=== PATIENT | female | born 1970 | race Caucasian/White ===

== ENCOUNTER → 2021-11-03 | Outpatient (CLI) | payer OTHER ==
[~2021-11-03] MED LIST: CRUTCH2 XX; FAMO10 PO; HERCEPTIN; HYDACE5 PO; LEVFLO500 PO; LORA1 PO; PHENA200 PO; Percocet 5-3251 EACH PO; Zithromax250 MG PO; Zofran4 MG PO; [UNRECOGNIZED DRUG - OTHER]; [UNRECOGNIZED DRUG - OTHER]; [UNRECOGNIZED DRUG - OTHER]
[2021-11-03 10:36] LABS: BASOPHILS ABSOLUTE AUTO 0.05 K/mm3 (0.00-0.23); BASOPHILS PERCENT AUTO 1 % (0-2); EOSINOPHILS ABSOLUTE AUTO 0.07 K/mm3 (0.00-0.68); EOSINOPHILS PERCENT AUTO 1 % (0-6); Hematocrit 45.3 % (33.0-51.0); Hemoglobin 16.2 g/dL (11.5-16.0); IMMATURE GRAN ABSOLUTE AUTO 0.04 K/mm3 (0.00-0.10); IMMATURE GRAN PERCENT AUTO 0 % (0-1); LYMPHOCYTES ABSOLUTE AUTO 2.74 K/mm3 (0.84-5.20); LYMPHOCYTES PERCENT AUTO 27 % (21-46); MONOCYTES ABSOLUTE AUTO 0.75 K/mm3 (0.16-1.47); MONOCYTES PERCENT AUTO 8 % (4-13); Mean Corpuscular HGB Conc 35.8 g/dL (31.5-36.5); Mean Corpuscular Volume 106 fL (80-100); Mean Platelet Volume 10.1 fL (9.1-12.4); NEUTROPHILS ABSOLUTE AUTO 6.38 K/mm3 (1.96-9.15); NEUTROPHILS PERCENT AUTO 64 % (41-73); Platelet Count 211 K/mm3 (150-400); RDW Coefficient Variation 12.4 % (11.7-14.2); RDW Standard Deviation 48.4 fL (35.1-46.3); Red Blood Cell Count 4.26 M/mm3 (3.80-5.20); White Blood Cell Count 10.03 K/mm3 (4.00-11.30)
[2021-11-03 10:49] LABS: Anion Gap 6 mmol/L (6-16); Blood Urea Nitrogen 5 mg/dL (8-24); CO2, Blood 33 mmol/L (21-32); Calcium, Blood 9.3 mg/dL (8.5-10.1); Chloride, Blood 96 mmol/L (98-108); Creatinine, Blood 0.71 mg/dL (0.40-1.00); Glomerular Filtration Rate >60 (60-); Glucose, Blood 107 mg/dL (70-99); Potassium, Blood 4.1 mmol/L (3.5-5.5); Sodium, Blood 135 mmol/L (136-145)
== END | disposition home or self-care (01) ==
LOC: LAB SHORT 10:29 → LAB 10:29
PROVIDERS: Chiropractor
DX: R07.9 Chest pain, unspecified (principal)
CPT/HCPCS: 80048; 84484; 85025; 85379

== ENCOUNTER 2021-12-10 06:05 | Day surgery (SDC) | payer OTHER ==
[~2021-12-10] VITALS: Ht 165.1 cm; Wt 58.2 kg
[~2021-12-10 06:05] MED LIST changes: +BENTYL PO; +CYCL10 PO; +DECADRON4 M1 PO; +LOSA25 PO; +METO25ER PO; +NEURONTIN300 MG PO; +PANT40 PO
--- NOTE | 2021-12-10 06:52 | NUR ---
History, Chart, Medications and Allergies reviewed before start of procedure. Lungs clear T/O to Auscultation. Patient confirms NPO status and agrees with scheduled surgery. Pre-Op teaching done. Pt verbalizes understanding. Patient reports completing Chlorhexadine shower X2 prior to admission to hospital. Patient States Post-Procedure ride home has been arranged.
--- NOTE | 2021-12-10 09:48 | NUR ---
Patient up to Ambulate independently. Gait steady. Discharge instructions reviewed with patient. Patient verbalizes understanding. Copy given to patient to take home. Discharged via wheelchair to private car for ride home.
== END 2021-12-10 23:15 | disposition home or self-care (01) ==
LOC: ORSCMMR 06:05 → ORD 09:45 → ORSCMMR 09:45
PROVIDERS: Surgery
PROC: 05HM33Z Insertion of Infusion Device into Right Internal Jugular Vein, Percutaneous Approach (ICD-10-PCS; principal; 2021-12-10 07:30)
DX: C34.11 Malignant neoplasm of upper lobe, right bronchus or lung (principal); I10 Essential (primary) hypertension; K21.9 Gastro-esophageal reflux disease without esophagitis; R56.9 Unspecified convulsions; Z79.899 Other long term (current) drug therapy
CPT/HCPCS: 77001; A9270; C1788; J0690; J1100; J1642; J2250; J2704; J3010; J7120

== ENCOUNTER → 2022-01-08 | Outpatient (CLI) | payer OTHER ==
[~2022-01-08] MED LIST changes: +Ativan0.5 MG PO; +POTA20PAC PO
== END | disposition home or self-care (01) ==
LOC: LAB SHORT 12:14 → LAB 12:14
DX: N39.0 Urinary tract infection, site not specified (principal)
CPT/HCPCS: 87077; 87086; 87186

== ENCOUNTER 2022-01-11 10:23 | Emergency (ER) | payer OTHER ==
[~2022-01-11] VITALS: Ht 165.1 cm; Wt 51.7 kg
[~2022-01-11 10:23] MED LIST changes: -Ativan0.5 MG PO; -POTA20PAC PO
[2022-01-11 11:45] LABS: Hematocrit 33.7 % (33.0-51.0); Hemoglobin 12.3 g/dL (11.5-16.0); Mean Corpuscular HGB 36.1 pg (26.0-34.0); Mean Corpuscular HGB Conc 36.5 g/dL (31.5-36.5); Mean Corpuscular Volume 99 fL (80-100); RDW Coefficient Variation 12.2 % (11.7-14.2); Red Blood Cell Count 3.41 M/mm3 (3.80-5.20); White Blood Cell Count 5.12 K/mm3 (4.00-11.30)
[2022-01-11 11:57] LABS: Alanine Aminotransfer (ALT/SGP 41 U/L (12-78); Albumin, Blood 3.3 g/dL (3.4-5.0); Albumin/Globulin Ratio 0.9 (0.8-1.8); Alk Phos 69 U/L (50-136); Anion Gap 16 mmol/L (6-16); Aspartate Aminotrans (AST/SGOT 34 U/L (12-37); Bilirubin, Total 0.6 mg/dL (0.1-1.0); Blood Urea Nitrogen 8 mg/dL (8-24); Bun/Creatinine Ratio 16.3 (12.0-20.0); CO2, Blood 28 mmol/L (21-32); Calcium, Blood 8.9 mg/dL (8.5-10.1); Chloride, Blood 86 mmol/L (98-108); Creatinine, Blood 0.49 mg/dL (0.40-1.00); Globulin, Blood 3.8 g/dL (2.2-4.0); Glomerular Filtration Rate >60 (60-); Glucose, Blood 78 mg/dL (70-99); Magnesium, Blood 1.7 mg/dL (1.6-2.4); Potassium, Blood 2.9 mmol/L (3.5-5.5); Sodium, Blood 130 mmol/L (136-145); Total Protein, Blood 7.1 g/dL (6.4-8.2)
[2022-01-11 12:55] LABS: BAND PERCENT MAN 5 % (0-8); BASOPHILS ABSOLUTE MAN 0.05 K/mm3 (0.00-0.23); BASOPHILS PERCENT MAN 1 % (0-2); EOSINOPHILS ABSOLUTE MAN 0.05 K/mm3 (0.00-0.68); EOSINOPHILS PERCENT MAN 1 % (0-6); LYMPHOCYTES ABSOLUTE MAN 0.46 K/mm3 (0.84-5.20); LYMPHOCYTES PERCENT MAN 9 % (21-46); MONOCYTES ABSOLUTE MAN 0.05 K/mm3 (0.16-1.47); MONOCYTES PERCENT MAN 1 % (4-13); SEG NEUTROPHILS PERCENT MAN 83 % (41-73); TOTAL CELLS COUNTED 100
[2022-01-11 12:58] LABS: Mean Platelet Volume 12.1 fL (9.1-12.4); Platelet Count 50 K/mm3 (150-400)
[2022-01-11] MEDS ORDERED: Ativan0.5 MG PO (17:52)
[2022-01-11] MEDS ORDERED: POTA20PAC PO (18:21)
== END 2022-01-11 18:28 | disposition home or self-care (01) ==
LOC: ER 10:23
PROVIDERS: Physician Assistant
DX: R11.2 Nausea with vomiting, unspecified (principal); T45.1X5A Adverse effect of antineoplastic and immunosuppressive drugs, initial encounter; E87.6 Hypokalemia; N39.0 Urinary tract infection, site not specified; C79.31 Secondary malignant neoplasm of brain; F17.200 Nicotine dependence, unspecified, uncomplicated; Z79.899 Other long term (current) drug therapy; Z88.8 Allergy status to other drugs, medicaments and biological substances; Y92.9 Unspecified place or not applicable; C34.90 Malignant neoplasm of unspecified part of unspecified bronchus or lung; Z88.5 Allergy status to narcotic agent
CPT/HCPCS: 80053; 83690; 83735; 85025; A9270; J2060; J7042

== ENCOUNTER 2022-01-31 08:45 | Day surgery (SDC) | payer OTHER ==
[~2022-01-31 08:45] MED LIST changes: +Ativan0.5 MG PO; +POTA20PAC PO
--- NOTE | 2022-01-31 09:05 | NUR ---
PT REPORTS N/V SINCE LAST TREATMENT A WEEK AGO. REPORTS THAT SHE SPOKE WITH ONC CALL STAFF FOR ONCOLOGY OFFICE WHO INSTRUCTED HER TO GO TO THE ER TODAY.
== END 2022-01-31 08:58 | disposition home or self-care (01) ==
LOC: ATC 08:45
DX: C34.11 Malignant neoplasm of upper lobe, right bronchus or lung (principal); C79.31 Secondary malignant neoplasm of brain; I50.22 Chronic systolic (congestive) heart failure; F17.200 Nicotine dependence, unspecified, uncomplicated; Z85.3 Personal history of malignant neoplasm of breast; Z85.048 Personal history of other malignant neoplasm of rectum, rectosigmoid junction, and anus; Z88.5 Allergy status to narcotic agent; Z88.8 Allergy status to other drugs, medicaments and biological substances
CPT/HCPCS: Q5110

== ENCOUNTER 2022-01-31 09:10 | Emergency (ER) | payer OTHER ==
[~2022-01-31] VITALS: Ht 165.1 cm; Wt 47.2 kg
[2022-01-31 11:04] LABS: Albumin, Blood 3.7 g/dL (3.4-5.0); Albumin/Globulin Ratio 0.8 (0.8-1.8); Bilirubin, Total 1.5 mg/dL (0.1-1.0); Calcium, Blood 9.6 mg/dL (8.5-10.1); Creatinine, Blood 0.51 mg/dL (0.40-1.00); Globulin, Blood 4.4 g/dL (2.2-4.0); Magnesium, Blood 1.8 mg/dL (1.6-2.4); Potassium, Blood 3.1 mmol/L (3.5-5.5); Total Protein, Blood 8.1 g/dL (6.4-8.2)
[2022-01-31 11:57] LABS: Hematocrit 34.9 % (33.0-51.0); Mean Corpuscular HGB 35.2 pg (26.0-34.0); Mean Corpuscular Volume 95 fL (80-100); RDW Coefficient Variation 12.3 % (11.7-14.2); RDW Standard Deviation 42.8 fL (35.1-46.3); Red Blood Cell Count 3.69 M/mm3 (3.80-5.20); White Blood Cell Count 3.78 K/mm3 (4.00-11.30)
[2022-01-31 11:58] LABS: Mean Platelet Volume 11.3 fL (9.1-12.4)
[2022-01-31 12:01] LABS: Mean Corpuscular HGB Conc 37.2 g/dL (31.5-36.5)
[2022-01-31 12:08] LABS: BASOPHILS PERCENT MAN 0 % (0-2); EOSINOPHILS PERCENT MAN 0 % (0-6); LYMPHOCYTES ABSOLUTE MAN 0.52 K/mm3 (0.84-5.20); LYMPHOCYTES PERCENT MAN 14 % (21-46); MONOCYTES PERCENT MAN 0 % (4-13); NEUTROPHILS ABSOLUTE MAN 3.25 K/mm3 (1.96-9.15); SEG NEUTROPHILS PERCENT MAN 86 % (41-73); TOTAL CELLS COUNTED 100
[2022-01-31 12:12] LABS: Platelet Count 86 K/mm3 (150-400)
== END 2022-01-31 15:11 | disposition home or self-care (01) ==
LOC: ER 09:10
PROVIDERS: Physician Assistant
DX: R11.2 Nausea with vomiting, unspecified (principal); T45.1X5A Adverse effect of antineoplastic and immunosuppressive drugs, initial encounter; E87.1 Hypo-osmolality and hyponatremia; E87.6 Hypokalemia; F17.200 Nicotine dependence, unspecified, uncomplicated; C34.90 Malignant neoplasm of unspecified part of unspecified bronchus or lung; C79.31 Secondary malignant neoplasm of brain; C50.919 Malignant neoplasm of unspecified site of unspecified female breast; Z79.899 Other long term (current) drug therapy; Z88.5 Allergy status to narcotic agent; Z88.8 Allergy status to other drugs, medicaments and biological substances; Y92.9 Unspecified place or not applicable
CPT/HCPCS: 36415; 80053; 83735; 85025; A9270; J2550; J7030

== ENCOUNTER → 2022-02-02 | Outpatient (CLI) | payer OTHER ==
[2022-02-02 10:33] LABS: Hematocrit 24.9 % (33.0-51.0); Hemoglobin 9.1 g/dL (11.5-16.0); Mean Corpuscular HGB Conc 36.5 g/dL (31.5-36.5); Mean Corpuscular Volume 98 fL (80-100); Mean Platelet Volume 11.6 fL (9.1-12.4); RDW Coefficient Variation 12.3 % (11.7-14.2); RDW Standard Deviation 43.8 fL (35.1-46.3); Red Blood Cell Count 2.53 M/mm3 (3.80-5.20)
[2022-02-02 10:42] LABS: Albumin, Blood 2.8 g/dL (3.4-5.0); Albumin/Globulin Ratio 0.8 (0.8-1.8); Bilirubin, Total 1.2 mg/dL (0.1-1.0); Bun/Creatinine Ratio 24.7 (12.0-20.0); Calcium, Blood 8.6 mg/dL (8.5-10.1); Creatinine, Blood 0.41 mg/dL (0.40-1.00); Globulin, Blood 3.6 g/dL (2.2-4.0); Potassium, Blood 2.9 mmol/L (3.5-5.5); Total Protein, Blood 6.4 g/dL (6.4-8.2)
[2022-02-02 11:49] LABS: Platelet Count 26 K/mm3 (150-400); White Blood Cell Count 0.56 K/mm3 (4.00-11.30)
[2022-02-02 11:54] LABS: BASOPHILS PERCENT MAN 0 % (0-2); EOSINOPHILS ABSOLUTE MAN 0.02 K/mm3 (0.00-0.68); EOSINOPHILS PERCENT MAN 4 % (0-6); LYMPHOCYTES ABSOLUTE MAN 0.41 K/mm3 (0.84-5.20); LYMPHOCYTES PERCENT MAN 74 % (21-46); MONOCYTES PERCENT MAN 0 % (4-13); NEUTROPHILS ABSOLUTE MAN 0.12 K/mm3 (1.96-9.15); SEG NEUTROPHILS PERCENT MAN 22 % (41-73); TOTAL CELLS COUNTED 50
== END | disposition home or self-care (01) ==
LOC: LAB 09:49 → LAB SHORT 09:49
PROVIDERS: Internal Medicine Hematology & Oncology
DX: C34.90 Malignant neoplasm of unspecified part of unspecified bronchus or lung (principal)
CPT/HCPCS: 36415; 80053; 82378; 85025

== ENCOUNTER 2022-02-05 09:41 | Day surgery (SDC) | payer OTHER ==
[2022-02-05] MEDS ORDERED: KLOR-CON 1010 ME1 PO (10:33)
[2022-02-05] MEDS ORDERED: PROM25 PO (10:34)
[2022-02-05] MEDS ORDERED: ALBU90OI INH (10:34)
[2022-02-05] MEDS ORDERED: PROM12.5S PR (10:34)
[2022-02-05] MEDS ORDERED: Cyclobenzaprine5 MG PO (10:35)
[2022-02-05] MEDS ORDERED: BUPR150ER PO (10:36)
[2022-02-05] MEDS ORDERED: MEMA10 PO (10:36)
[2022-02-05] MEDS ORDERED: LOSA25 PO (10:36)
[2022-02-05] MEDS ORDERED: LEVFLO500 PO (10:37)
--- NOTE | 2022-02-05 10:39 | NUR ---
ENCOURAGED PT TO BE VERY CAREFULL WHEN GETTNG UP. ENCOURAGED HER TO STOP FOR A FEW SECONDS PRIOR TO GETTING UP D/T HER LOW BP.
== END 2022-02-05 10:05 | disposition home or self-care (01) ==
LOC: ATC 09:41
DX: C34.11 Malignant neoplasm of upper lobe, right bronchus or lung (principal); D70.1 Agranulocytosis secondary to cancer chemotherapy; I50.22 Chronic systolic (congestive) heart failure; I42.9 Cardiomyopathy, unspecified; F17.200 Nicotine dependence, unspecified, uncomplicated; Z88.5 Allergy status to narcotic agent; Z88.8 Allergy status to other drugs, medicaments and biological substances
CPT/HCPCS: 96372; Q5110

== ENCOUNTER → 2022-02-06 | Outpatient (CLI) | payer OTHER ==
[~2022-02-06] MED LIST changes: +ALBU90OI INH; +BUPR150ER PO; +Cyclobenzaprine5 MG PO; +KLOR-CON 1010 ME1 PO; +MEMA10 PO; +PROM12.5S PR; +PROM25 PO
[2022-02-06 13:13] LABS: Albumin, Blood 2.9 g/dL (3.4-5.0); Bilirubin, Total 1.1 mg/dL (0.1-1.0); Bun/Creatinine Ratio 22.3 (12.0-20.0); Calcium, Blood 8.4 mg/dL (8.5-10.1); Creatinine, Blood 0.31 mg/dL (0.40-1.00); Potassium, Blood 2.3 mmol/L (3.5-5.5); Total Protein, Blood 5.9 g/dL (6.4-8.2)
[2022-02-06 14:01] LABS: Hematocrit 23.8 % (33.0-51.0); Mean Corpuscular Volume 93 fL (80-100); RDW Coefficient Variation 12.3 % (11.7-14.2); RDW Standard Deviation 41.1 fL (35.1-46.3); Red Blood Cell Count 2.57 M/mm3 (3.80-5.20); White Blood Cell Count 1.47 K/mm3 (4.00-11.30)
[2022-02-06 14:03] LABS: Mean Corpuscular HGB 35.4 pg (26.0-34.0)
[2022-02-06 14:06] LABS: Mean Corpuscular HGB Conc 38.2 g/dL (31.5-36.5)
[2022-02-06 14:07] LABS: Hemoglobin 9.1 g/dL (11.5-16.0)
[2022-02-06 14:11] LABS: Platelet Count 4 K/mm3 (150-400)
[2022-02-06 14:14] LABS: BAND PERCENT MAN 8 % (0-8); BASOPHILS PERCENT MAN 0 % (0-2); EOSINOPHILS ABSOLUTE MAN 0.01 K/mm3 (0.00-0.68); EOSINOPHILS PERCENT MAN 1 % (0-6); LYMPHOCYTES ABSOLUTE MAN 0.39 K/mm3 (0.84-5.20); LYMPHOCYTES PERCENT MAN 27 % (21-46); METAMYELOCYTE ABSOLUTE MAN 0.01 K/mm3 (0.00-0.00); METAMYELOCYTE PERCENT MAN 1 % (0-0); MONOCYTES ABSOLUTE MAN 0.41 K/mm3 (0.16-1.47); MONOCYTES PERCENT MAN 28 % (4-13); MYELOCYTE ABSOLUTE MAN 0.01 K/mm3 (0.00-0.00); MYELOCYTE PERCENT MAN 1 % (0-0); NEUTROPHILS ABSOLUTE MAN 0.61 K/mm3 (1.96-9.15); SEG NEUTROPHILS PERCENT MAN 34 % (41-73); TOTAL CELLS COUNTED 100
[2022-02-06 16:06] LABS: Source, Urine Clean Catch
[2022-02-06 16:27] LABS: Bacteria Mod /hpf; Hyaline Casts 0-2 /lpf (0-2); Mucus Heavy (0-Heavy); Renal Epithelial Rare /hpf (0-Rare); Squamous Epithelial Cells Few /hpf (Few); Transitional Epithelial Cells Rare /hpf (0-Rare); White Blood Cells, Urine 0-2 /hpf (0-5)
== END | disposition home or self-care (01) ==
LOC: LAB SHORT 11:43
PROVIDERS: General Practice
DX: R31.9 Hematuria, unspecified (principal)
CPT/HCPCS: 80053; 81015; 85025; 87086

== ENCOUNTER 2022-02-09 02:34 | Inpatient (IN) | payer OTHER ==
[~2022-02-09] VITALS: Ht 165.1 cm; Wt 52.5 kg
[2022-02-09 03:56] LABS: Hematocrit 22.9 % (33.0-51.0); Mean Corpuscular Volume 93 fL (80-100); Mean Platelet Volume 10.4 fL (9.1-12.4); NRBC ABSOLUTE 0.02 K/mm3 (0.00-0.02); NRBC Auto 0.5 /100 WBC (0.0-0.2); RDW Coefficient Variation 12.3 % (11.7-14.2); RDW Standard Deviation 42.1 fL (35.1-46.3); Red Blood Cell Count 2.47 M/mm3 (3.80-5.20); White Blood Cell Count 4.13 K/mm3 (4.00-11.30)
[2022-02-09 04:02] LABS: Hemoglobin 8.7 g/dL (11.5-16.0); Mean Corpuscular HGB 35.2 pg (26.0-34.0)
[2022-02-09 04:03] LABS: Platelet Count 15 K/mm3 (150-400)
[2022-02-09 04:17] LABS: Albumin, Blood 2.8 g/dL (3.4-5.0); Albumin/Globulin Ratio 0.8 (0.8-1.8); Bilirubin, Total 1.4 mg/dL (0.1-1.0); Bun/Creatinine Ratio 9.8 (12.0-20.0); Calcium, Blood 8.6 mg/dL (8.5-10.1); Creatinine, Blood 0.41 mg/dL (0.40-1.00); Globulin, Blood 3.3 g/dL (2.2-4.0); Potassium, Blood 2.2 mmol/L (3.5-5.5); Total Protein, Blood 6.1 g/dL (6.4-8.2)
[2022-02-09 04:27] LABS: BAND PERCENT MAN 3 % (0-8); BASOPHILS PERCENT MAN 0 % (0-2); EOSINOPHILS PERCENT MAN 0 % (0-6); LYMPHOCYTES ABSOLUTE MAN 0.74 K/mm3 (0.84-5.20); LYMPHOCYTES PERCENT MAN 18 % (21-46); METAMYELOCYTE ABSOLUTE MAN 0.08 K/mm3 (0.00-0.00); METAMYELOCYTE PERCENT MAN 2 % (0-0); MONOCYTES ABSOLUTE MAN 0.82 K/mm3 (0.16-1.47); MONOCYTES PERCENT MAN 20 % (4-13); MYELOCYTE ABSOLUTE MAN 0.12 K/mm3 (0.00-0.00); MYELOCYTE PERCENT MAN 3 % (0-0); NEUTROPHILS ABSOLUTE MAN 2.35 K/mm3 (1.96-9.15); SEG NEUTROPHILS PERCENT MAN 54 % (41-73); TOTAL CELLS COUNTED 100
--- NOTE | 2022-02-09 12:20 | NUR ---
PATIENT CAME FROM ER TODAY 02/09/22 AT 1150. HYPOKALEMIA PATIENT IS A&OX4. VS ARE WNL AND IS ON RA. PATIENT REPORTS HAVING CHRONIC HIP PAIN "ALWAYS HAS BEEN THERE". POWERPORT WAS ACCESSED IN ER AND IS INFUSING IV POTASSIUM. TELE IS IN PLACE AND IS 87 BPM SINUS. PATIENT WAS ABLE TO STAND AND PIVOT FROM ER BED TO HER ROOM BED. SHE IS TOLERATING SMALL SIPS OF WATER AND DENIES NAUSEA/VOMITING AT THIS TIME. CALL LIGHT WITHIN REACH. SISTER IS AT BEDSIDE.
[2022-02-09 14:36] LABS: Hematocrit 22.1 % (33.0-51.0); Hemoglobin 8.2 g/dL (11.5-16.0); Mean Corpuscular HGB 35.2 pg (26.0-34.0); Mean Corpuscular HGB Conc 37.1 g/dL (31.5-36.5); Mean Corpuscular Volume 95 fL (80-100); Mean Platelet Volume 11.4 fL (9.1-12.4); RDW Coefficient Variation 12.7 % (11.7-14.2); RDW Standard Deviation 43.6 fL (35.1-46.3); Red Blood Cell Count 2.33 M/mm3 (3.80-5.20)
[2022-02-09 14:44] LABS: Platelet Count 22 K/mm3 (150-400)
[2022-02-09 14:58] LABS: BAND PERCENT MAN 4 % (0-8); BASOPHILS PERCENT MAN 0 % (0-2); EOSINOPHILS PERCENT MAN 0 % (0-6); LYMPHOCYTES PERCENT MAN 27 % (21-46); MONOCYTES ABSOLUTE MAN 1.02 K/mm3 (0.16-1.47); MONOCYTES PERCENT MAN 25 % (4-13); NEUTROPHILS ABSOLUTE MAN 1.96 K/mm3 (1.96-9.15); SEG NEUTROPHILS PERCENT MAN 44 % (41-73); TOTAL CELLS COUNTED 100
[2022-02-09 14:59] LABS: Bun/Creatinine Ratio 8.1 (12.0-20.0); Calcium, Blood 8.1 mg/dL (8.5-10.1); Creatinine, Blood 0.37 mg/dL (0.40-1.00); Potassium, Blood 3.7 mmol/L (3.5-5.5)
--- NOTE | 2022-02-09 16:09 | NUR ---
SHIFT SUMMARY: HYPOKALEMIA NO SIGNIFICANT CHANGES SINCE ARRIVAL FROM ER EARLIER TODAY. A&OX4. VS ARE WNL AND IS ON RA. IV NUTRITION HAS BEEN STARTED. PATIENT HAS A POWERPORT IN HER RIGHT CHEST WALL THAT IS INFUSING. PATIENT ATTEMPTS TO SWALLOW WATER AND OTHER FLUIDS PO AND PATIENT STATES "IT COMES RIGHT BACK UP AGAIN!". PATIENT IS VOIDING AND IS A SBA TO THE BATHROOM. CALLS APPROPRIATELY. CALL LIGHT WITHIN REACH. THE PLAN IS TO CONTINUE IV NUTRITION AND TO GET PALLIATIVE CARE ON BOARD WELL SET UP OUTPATIENT INFUSIONS/NUTRITION FOR HER.
--- NOTE | 2022-02-09 16:32 | NUR ---
Spiritual Care Nurse Referral Pt. is awake in bed and welcomes my visit. Pt. is pleasant, and rapport is quickly established. Facilitated a life review. Pt. displays evidence of courage and motivation to fight her illness. Pt. verbalizes how pleased she is with the care she has received by the hospitalist and her nursing team. Through a calming presence identified that her motivation is her grandchildren. Prayed with Pt. Pt. verbalized gratitude for the spiritual care visit. Pt. did not reveal any source of spiritual support other than past hosptial chaplains. This orthotic/prosthetic clinician will plan to return in the morning.
--- NOTE | 2022-02-09 17:39 | NUR ---
Pt resting in bed and is A&O. Pt's spouse is at bedside. Pt reports nausea and just received promethazine prior to this RN arriving. Offered therapeutic listening as Pt reports living at home with her and having an uncle that lives with them. She reports at baseline she baby sits her grandchildren. She reports adequate support at home with her family. Listened as Pt reports her mother's passing 8 years ago and her father's passing 3 years ago. Pt has struggled with nausea in the past and having use lorazepam with good effect. She reports having an appetite but just can't keep anything down. Continued therapeutic listening. Pt agreeable to try lorazepam again. Spoke with Pt's Primary RN Opal and bleach supervisor Judi. Discussed case and concerns. Called and spoke with Dr Asif. Placed order for Ativan 1mg IV TID PRN per V/O from Dr Asif. Palliative Care will remain available for suuportive visits and symptom management.
[2022-02-10 04:43] LABS: Hematocrit 21.2 % (33.0-51.0); Hemoglobin 7.8 g/dL (11.5-16.0); Mean Corpuscular HGB 34.5 pg (26.0-34.0); Mean Corpuscular HGB Conc 36.8 g/dL (31.5-36.5); Mean Corpuscular Volume 94 fL (80-100); Mean Platelet Volume 11.6 fL (9.1-12.4); NRBC ABSOLUTE 0.03 K/mm3 (0.00-0.02); NRBC Auto 0.7 /100 WBC (0.0-0.2); RDW Coefficient Variation 12.2 % (11.7-14.2); RDW Standard Deviation 41.8 fL (35.1-46.3); Red Blood Cell Count 2.26 M/mm3 (3.80-5.20); White Blood Cell Count 4.02 K/mm3 (4.00-11.30)
[2022-02-10 04:50] LABS: Platelet Count 24 K/mm3 (150-400)
[2022-02-10 04:59] LABS: Bun/Creatinine Ratio 31.1 (12.0-20.0); Calcium, Blood 8.5 mg/dL (8.5-10.1); Creatinine, Blood 0.35 mg/dL (0.40-1.00); Magnesium, Blood 1.2 mg/dL (1.6-2.4); Phosphorus, Blood 2.5 mg/dL (2.5-4.9); Potassium, Blood 3.2 mmol/L (3.5-5.5)
--- NOTE | 2022-02-10 05:39 | NUR ---
SUMMARY PT SLEPT FOR MOST OF SHIFT. PT WOKE UP WITH BACK PAIN AND WAS TX PER EMAR W/ RELIF. PT REPORTS FEELING MUCH BETTER AND IS DRINKING WATER. PT VOIDING WELL. NO OTHER ISSUES NOTED.
--- NOTE | 2022-02-10 10:57 | NUR ---
Spoke with Primary RN Judi, CLIVE Pina, and ILENE Osman. Discussed case and plan. Pt is showing some improvement with her nausea and vomiting. Pt was able to eat some of her breakfast. Marinol start this AM. RD considering NG if no significant improvement today. Pt resting in bed and appears weak and tired. Pt does report some improvement today. Reviewed plan of care with Pt in agreement. Pt reports having Reglan in the past with no benefit. Offered therapeutic listening and answered questions. Pt and family express appreciation and report no other concerns at this time. Palliative Care will remain available.
--- NOTE | 2022-02-10 14:04 | NUR ---
Spiritual Care Visit. Pt. is resting. Pts. Spouse and MIL welcome my visit. MIL is a former Surgical floor Pt. and had a very positive experience in our hospital. Facilitated family life review while Pt. rested. MIL and spouse both displayed evidence of confidence and peace in light of the Pts. condition. Both verbalized gratitude for the spiritual care visit.
--- NOTE | 2022-02-10 16:38 | NUR ---
PT HYPOTENSIVE SYSTOLIC IN 80'S HR 109. DR CHIN NOTIFIED, ORDER FOR 1L NS BOLUS.
[2022-02-11 06:52] LABS: Anion Gap 9 mmol/L (6-16); Blood Urea Nitrogen 10 mg/dL (8-24); Bun/Creatinine Ratio 25.6 (12.0-20.0); CO2, Blood 31 mmol/L (21-32); Calcium, Blood 8.7 mg/dL (8.5-10.1); Chloride, Blood 90 mmol/L (98-108); Creatinine, Blood 0.39 mg/dL (0.40-1.00); Glomerular Filtration Rate 120 (60-); Glucose, Blood 129 mg/dL (70-99); Magnesium, Blood 1.4 mg/dL (1.6-2.4); Phosphorus, Blood 3.2 mg/dL (2.5-4.9); Potassium, Blood 3.4 mmol/L (3.5-5.5); Sodium, Blood 130 mmol/L (136-145); Triglycerides 228 mg/dL (30-160)
--- NOTE | 2022-02-11 09:00 | NUR ---
Supportive visit this AM. Pt resting in bed upon arrival. Pt reports feeling better and current regimen is managing her nausea/vomiting. Pt reports tolerating bites but still unable to eat any significant portion of her meals. Pt reports being in good spirits. Pt reports no concerns at this time. Spoke with Pt's Primary RN Judi and discussed case. Palliative Care will remain available.
--- NOTE | 2022-02-11 18:20 | NUR ---
SHIFT SUMMARY PT HAS CONTINUED TO SHOW IMPROVEMENT THIS SHIFT. NO N/V SINCE YESTERDAY AM. MARINOL SEEMS TO HELP IMPROVE APPETITE, STILL TAKING LESS THAN 25% OF MEALS. CPN TO MEDIPORT.
[2022-02-12 06:45] LABS: Bun/Creatinine Ratio 29.8 (12.0-20.0); Calcium, Blood 8.9 mg/dL (8.5-10.1); Creatinine, Blood 0.34 mg/dL (0.40-1.00); Potassium, Blood 3.8 mmol/L (3.5-5.5)
--- NOTE | 2022-02-12 08:17 | NUR ---
HYPOTENSION PT'S SBP IS IN THE 80'S THIS AM. PT IS ASYMPTOMATIC AND REPORTS HER BP IS USUALLY LOW. PREVIOUS VS REVIEWED AND PT'S SBP APPEARS TO MAINTIAN IN THE 90'S. SHE DENIES FEELING DIZZY OR LIGHTHEADED. PT INSTRUCTED TO NOT GET OOB WITHOUT ASSISTANCE. PLAN TO INCREASE BP MONITORING. WILL CONTINUE TO MONITOR.
--- NOTE | 2022-02-12 13:42 | NUR ---
CONTINUED ASYMPTOMATIC HYPOTENSION BP OF 83/[address] CAI NOTIFIED AND PRESCRIBED MIDODRINE. MIDRORINE GIVEN AT 1214. DR. CAI NOTIFIED THAT SBP IMPROVED TO [address] OK PER [address]. CAI TO GET PT INTO THE SHOWER.
--- NOTE | 2022-02-12 18:15 | NUR ---
SHIFT SUMMARY PT CONTINUES TO BE ON TPN. SHE HAS A MINIMAL APPETITE. PT IS INDEPENDENT TO REPOSITION HERSELF. SHE REQUIRES SBA WHEN OOB. PT WAS UP TO THE SHOWER TODAY. FAMILY AT THE BEDSIDE FOR SUPPORT. WILL MONITOR UNTIL REPORT TO JOSE DUFFY.
--- NOTE | 2022-02-13 11:36 | NUR ---
HYPOTENSION PT IS HAVING CONTINUED ASYMPTOMATIC HYPOTENSION. APPEARS TO IMPROVE WITH THE USE OF MIDODRINE. WILL CONTINUE TO MONITOR AND REPORT ANY CHANGES.
--- NOTE | 2022-02-13 18:32 | NUR ---
SHIFT SUMMARY PT REMAINS IN THE HOSPITAL FOR PARENTERAL NUTRITION. PLAN FOR PT TO MEET WITH DIETARY TOMORROW, PT WILL POSSIBLY NEED A FEEDING TUBE. PT CONTINUES TO HAVE LOW PO INTAKE. SHE COMPLAINS OF HEART BURN AFTER EATING. PROTONIX WAS GIVEN WITH MARINOL BEFORE DINNER, PT REPORTS THAT HELPED. SHE STILL DID NOT EAT DINNER BECAUSE IT WAS NOT APPETIZING. SHE REPORTS THAT SHE DID NOT GET A MENU AND THE ITEMS SHE IS SELECTING ARE NOT BEING SENT. PT'S HAS BROUGHT SOME FOOD FROM HOME WHICH SHE HAS EATEN SMALL AMOUNTS OF. PT HAD SOME BEANS AND HAM FROM HOME THIS AFTERNOON. PT IS A 1 ASSIST WHEN OOB. SHE DENIES PAIN. BP REMAINS LOW, MIDODRINE STARTED WITH MINIMAL EFFECT. PT IS ASYMPTOMATIC OF HYPOTENSION. WILL MONITOR UNTIL REPORT TO JOSE DUFFY.
[2022-02-14 05:07] LABS: Hematocrit 19.5 % (33.0-51.0); Hemoglobin 6.9 g/dL (11.5-16.0); Mean Corpuscular HGB 35.4 pg (26.0-34.0); Mean Corpuscular HGB Conc 35.4 g/dL (31.5-36.5); Mean Corpuscular Volume 100 fL (80-100); NRBC ABSOLUTE 0.02 K/mm3 (0.00-0.02); NRBC Auto 0.4 /100 WBC (0.0-0.2); Platelet Count 124 K/mm3 (150-400); RDW Coefficient Variation 13.6 % (11.7-14.2); RDW Standard Deviation 45.6 fL (35.1-46.3); Red Blood Cell Count 1.95 M/mm3 (3.80-5.20); White Blood Cell Count 5.32 K/mm3 (4.00-11.30)
[2022-02-14 05:28] LABS: Albumin, Blood 2.5 g/dL (3.4-5.0); Anion Gap 7 mmol/L (6-16); Blood Urea Nitrogen 12 mg/dL (8-24); Bun/Creatinine Ratio 34.7 (12.0-20.0); CO2, Blood 32 mmol/L (21-32); Calcium, Blood 8.8 mg/dL (8.5-10.1); Chloride, Blood 91 mmol/L (98-108); Creatinine, Blood 0.35 mg/dL (0.40-1.00); Glomerular Filtration Rate 123 (60-); Glucose, Blood 128 mg/dL (70-99); Magnesium, Blood 1.2 mg/dL (1.6-2.4); Phosphorus, Blood 4.3 mg/dL (2.5-4.9); Potassium, Blood 3.6 mmol/L (3.5-5.5); Sodium, Blood 130 mmol/L (136-145)
--- NOTE | 2022-02-14 06:14 | NUR ---
SUMMARY WBC IMPROVING.CONT WITH PPN AND LITTLE APPETITE.SLEEPS QUIETLY AT NIGHT. CONTINUES TO REPORT NAUSEA RESOLVED.VOIDING.HAS HAD BMS.
[2022-02-15 05:00] LABS: Hematocrit 24.5 % (33.0-51.0); Hemoglobin 8.6 g/dL (11.5-16.0); Mean Corpuscular HGB 34.1 pg (26.0-34.0); Mean Corpuscular HGB Conc 35.1 g/dL (31.5-36.5); Mean Corpuscular Volume 97 fL (80-100); Mean Platelet Volume 10.5 fL (9.1-12.4); NRBC ABSOLUTE 0.02 K/mm3 (0.00-0.02); NRBC Auto 0.4 /100 WBC (0.0-0.2); Platelet Count 154 K/mm3 (150-400); RDW Coefficient Variation 14.9 % (11.7-14.2); RDW Standard Deviation 48.7 fL (35.1-46.3); Red Blood Cell Count 2.52 M/mm3 (3.80-5.20); White Blood Cell Count 5.36 K/mm3 (4.00-11.30)
--- NOTE | 2022-02-15 05:06 | NUR ---
SHIFT SUMMARY NO ACUTE CHANGES THIS SHIFT. PT CONT TO DENY NAUSEA. INDEP TO BSC. NPO SINCE MIDNIGHT WITH IV NUTRITION INFUSING THROUGH MEDIPORT. PLAN FOR PEG TUBE PLACEMENT TODAY. USES CALL LIGHT APPROPRIATELY.
[2022-02-15 05:14] LABS: Magnesium, Blood 1.7 mg/dL (1.6-2.4)
[2022-02-15 05:15] LABS: Albumin, Blood 2.6 g/dL (3.4-5.0); Anion Gap 6 mmol/L (6-16); Blood Urea Nitrogen 10 mg/dL (8-24); CO2, Blood 31 mmol/L (21-32); Calcium, Blood 9.3 mg/dL (8.5-10.1); Chloride, Blood 95 mmol/L (98-108); Creatinine, Blood 0.36 mg/dL (0.40-1.00); Glomerular Filtration Rate 122 (60-); Glucose, Blood 99 mg/dL (70-99); Phosphorus, Blood 4.4 mg/dL (2.5-4.9); Potassium, Blood 4.1 mmol/L (3.5-5.5); Sodium, Blood 132 mmol/L (136-145)
[2022-02-15 09:29] LABS: Influenza A, PCR NEGATIVE (NEGATIVE); Influenza B, PCR NEGATIVE (NEGATIVE); Resp Syncytial Virus, PCR NEGATIVE (NEGATIVE); SARS-Cov-2 (COVID-19) PCR, MMC NEGATIVE (NEGATIVE)
--- NOTE | 2022-02-15 13:17 | NUR ---
PT TO [facility]. AGREES WITH PLANNED PROCEDURE.
--- NOTE | 2022-02-15 14:26 | NUR ---
REPORT GIVEN TO JAZMIN EDGE RN.
--- NOTE | 2022-02-15 14:43 | NUR ---
02/15/22 1443 Caden Zaidi History, Chart, Medications and Allergies reviewed before start of procedure.MONITOR INTACT WITH CONTINUOUS PULSE OXIMETRY AND INTERMITTENT BP.3-LEAD EKG REVIEWED WITH PHYSICIAN PRIOR TO START OF PROCEDURE.O2 VIA POM INTACT THROUGHOUT SEDATION/PROCEDURE. See Anesthesia record.
--- NOTE | 2022-02-15 15:40 | NUR ---
ARRIVAL PT BACK FROM SURGERY AT THIS TIME. PEG TUBE SITE CDI. PT DOES NOT COMPLAIN OF PAIN AT THIS TIME.
--- NOTE | 2022-02-15 16:07 | NUR ---
Spiritual Care Visit. Pt. is awake in bed and welcomes my visit. Spouse is present. Pt. displays evidence of implications of chemo treatment, but also displays a steel will to fight the cancer. Pt. verbalizes the progress in her diet and appetite acknowledging the presence of a feeding tube. Emotionally Pt. displays a positive focus. Supportive spouse is at bedside. Pastoral encouragement is given, and with Pts. permission prayed for strength and healing. Pt. displaysa evidence of a strong jennifer. Pt. and spouse verbalized gratitude for the spiritual care visit.
--- NOTE | 2022-02-15 18:30 | NUR ---
SHIFT SUMMARY PT POD #0 FOR PEG TUBE PLACEMENT. GAUZE DRESSING IN PLACE AROUND THE PEG TUBE, CDI. PT HAS TPN INFUSING THROUGH HER MEDIPORT. PT REPORT THAT HER NAUSEA IS WELL CONTROLLED PER EMR. DENIES PAIN AT THIS TIME. VSS. AT THE BEDSIDE.
--- NOTE | 2022-02-16 04:06 | NUR ---
SHIFT SUMMARY NO ACUTE CHANGES THIS SHIFT. 25MCG FENTANYL PRN FOR ABD PAIN. PEG TUBE INTACT. IV NUTRITION INFUSING PER ORDERS. PT TOLERATING ICE CHIPS AND SIPS OF WATER. INDEP TO BSC. USES CALL LIGHT APPROPRIATELY.
--- NOTE | 2022-02-16 10:47 | NUR ---
TUBE FEEDING SPOKE WITH ANITA (SUPERVISOR MIXING) REGARDING TUBE FEEDING. PER ANITA TUBE FEEDING SHOULD BE STARTED THIS EVENING AT 1800 AFTER TPN IS STOPPED AND RUN OVERNIGHT. WILL CONTINUE TO MONITOR.
--- NOTE | 2022-02-16 17:35 | NUR ---
TUBE FEEDING STARTED AT 25ML/HOUR.
--- NOTE | 2022-02-16 19:58 | NUR ---
SHIFT SUMMARY PT REMAINS IN THE HOSPITAL FOR NUTRITION NEEDS. TUBE FEEDING STARTED THIS EVENING AT 25ML/HOUR, PT TOLERATING WELL. PT'S APPETITE IS STILL MINIMAL. PAIN MANAGED WITH FENTANYL IV T/O THE DAY, TRANSITIONING TO PO MEDICATION SINCE MEDIPORT DEACCESSED. PT CONTINUES TO BE HYPOTENSIVE, AND IS ASYMPTOMATIC. REPORT GIVEN TO JOSE DUFFY.
--- NOTE | 2022-02-17 04:43 | NUR ---
OYSTER UNLOADER SUMMARY NO ACUTE CHANGES THIS SHIFT. PT AAOX4 AND VERY PLEASANT. MEDICATED FOR PAIN AT BEDTIME AND PT WAS ABLE TO SLEEP MOST OF THE NIGHT. FEEDINGS STARTED VIA G TUBE AT APPROXIMATELY 1730 PER DAY SHIFT RN AT 25 ML/HR. PT TOLERATING FEEDS, NO BLOATING OR OVERFULLNESS REPORTED BY PT. RATE INCREASED BY 10 ML/HR Q4H, NOW AT 45 ML/HR. VSS, WILL CONTINUE TO MONITOR.
[2022-02-17 05:34] LABS: Bun/Creatinine Ratio 26.4 (12.0-20.0); Calcium, Blood 9.5 mg/dL (8.5-10.1); Creatinine, Blood 0.49 mg/dL (0.40-1.00); Magnesium, Blood 1.6 mg/dL (1.6-2.4); Phosphorus, Blood 4.6 mg/dL (2.5-4.9); Potassium, Blood 3.7 mmol/L (3.5-5.5)
--- NOTE | 2022-02-17 09:08 | NUR ---
PEG TUBE FEED ADVANCED 10 MLS, UP TO 55 MLS/HR.
--- NOTE | 2022-02-17 11:00 | NUR ---
PT VOMITED 200 + SOME EMESIS ON FLOOR, PAUSED TUBE FEED
--- NOTE | 2022-02-17 11:04 | NUR ---
PEG TUBE FEEDING ADVANCED 10 MLS TO 65 MLS/HR
--- NOTE | 2022-02-17 11:30 | NUR ---
RETURNED TUBE FEED TO 55 MLS/HR AND RESTARTED FEED
--- NOTE | 2022-02-17 13:37 | NUR ---
EMESIS TRANSPORT AT BEDSIDE FOR CT. PATIENT SAT UP, FEED SHUT OFF. PATIENT HAD EMESIS TOTAL OF 300 CC
--- NOTE | 2022-02-17 18:39 | NUR ---
SHIFT SUMMARY PT A&OX4, VSS/RA, N&V TREATED WITH 12.5 PHENERGAN IV, ALSO REGLAN GIVEN PO BUT PT TOOK AFTER PHENERGAN IV GIVEN. DID NOT RESTART TUBE FEEDS SINCE PATIENT ACTIVELY NAUTIOUS WITH INTERMITTENT VOMITING. PT REQ TO WAIT UNTIL NIGHTSHIFT TO START TF. PAIN TREATED WITH OXY 5 MG AND TYLENOL. VOIDING WELL, USING BSC. WILL REPORT TO ONCOMING NOC RN.
[2022-02-18 05:27] LABS: Anion Gap 7 mmol/L (6-16); Blood Urea Nitrogen 10 mg/dL (8-24); Bun/Creatinine Ratio 17.5 (12.0-20.0); CO2, Blood 33 mmol/L (21-32); Calcium, Blood 9.6 mg/dL (8.5-10.1); Chloride, Blood 92 mmol/L (98-108); Creatinine, Blood 0.57 mg/dL (0.40-1.00); Glomerular Filtration Rate 109 (60-); Glucose, Blood 86 mg/dL (70-99); Potassium, Blood 4.2 mmol/L (3.5-5.5); Sodium, Blood 132 mmol/L (136-145); Triglycerides 140 mg/dL (30-160)
--- NOTE | 2022-02-18 05:52 | NUR ---
PHARMACIST HELPER SUMMARY NO ACUTE CHANGES THIS SHIFT. PT AAOX4 AND INDEPENDENT TO BSC. PT DID NOT WANT TO RESTART HER TUBE FEEDINGS AT START OF SHIFT DUE TO MULTIPLE EPISODES OF N/V DURING DAY SHIFT. PT REQUESTED FEEDS TO BE RESTARTED IN THE AM SO PT WAS RECONNECTED AT 0500 AT A RATE OF 25 ML/HR. PT HOPEFUL FOR DISCHARGE LATER TODAY AND STATES THAT SHE FEELS SHE WILL BE ABLE TO EAT AND DRINK BETTER ONCE SHE GETS HOME AND HAS MORE OPTIONS FOR FOOD/DRINK. VSS, WILL CONTINUE TO MONITOR.
--- NOTE | 2022-02-18 15:57 | NUR ---
SHIFT SUMMARY/DISCHARGE NOTE: POD 3 PED TUBE PLACEMENT PATIENT IS A&OX4. VS ARE WNL AND IS ON RA. PAIN IS MANAGED WITH PO JENNIFER. PEG TUBE IS INFUSING FEEDING AT A 25 ML/HR RATE AND SHE IS TOLERATING IT WELL. SHE DENIES NAUSEA AND VOMITING AND IS TOLERATING A VERY SMALL AMOUNT OF PO INTAKE. FEEDING TUBE WAS CHANGED TODAY AND HAD 30CC'S FLUSHED PRIOR TO FEEDINGS BEING RESTARTED. PATIENT TOLERATED IT WELL AND WAS EVEN HELPING TO MANAGE TO PEG TUBE. PATIENT IS INDEP. IN THE ROOM. IS AT BEDSIDE. CALLS APPROPRIATELY. CALL LIGHT WITHIN REACH. THE PATIENT REPORTED FEELING "IRRITATED" SINCE SHE WAS SUPPOSED TO BE DISCHARGED HOME TODAY WITH GRAVITY FEEDINGS. THOUGH SHE HAD TWO VOMITING EPISODES YESTERDAY WITH THE GRAVITY FEEDINGS SO THE DIETITIAN ORDERED HER TO BE ON A KANGAROO PUMP AT HOME AT LEAST UNTIL SHE CAN TOLERATE THE FEEDINGS BETTER THEN CAN EVENTUALLY BE OFF THE PUMP TO GRAVITY FEEDINGS. HOWEVER, CASE MANAGEMENT REPORTED THAT THE KANGAROO PUMP WONT BE ABLE TO BE DROPPED OFF AT HER HOUSE UNTIL MONDAY (02/22/22) BUT WILL HAVE THE FEEDINGS DELIVERED TO HER HOME TODAY. PATIENT WAS TOLD BY CASE MANAGEMENT AND DR. ORDAZ THAT SHE HAD TWO OPTIONS. FIRST OPTION IS THAT SHE CAN BE DISCHARGED HOME TODAY WITH GRAVITY FEEDINGS BUT THERE IS A CHANCE SHE MIGHT OVER-FEED HERSELF AND BECOME NAUSEOUS/VOMIT AGAIN AT HOME. THE SECOND OPTION IS THAT SHE CAN STAY UNTIL MONDAY AND CAN HAVE THE RATE ON THE KANGAROO PUMP INCREASED TOLERATED AND IF SHE BECOMES NAUSEOUS CAN HAVE IV ANTI-NAUSEA MEDICATIONS. AND CASE MANAGEMENT ARE AT THE PATIENTS BEDSIDE. CASE MANAGEMENT CAME BACK FROM THE ROOM AND THE PATIENT AND AGREED FOR WANTING TO BE DISCHARGED HOME TODAY. DR. ORDAZ HAS BEEN NOTIFIED AND SHE WILL CONTACT THE DIETITIAN FOR WHAT THE PATIENT SHOULD DO AT HOME AND THEN WILL PUT IN DISCHARGE ORDERS.
[2022-02-18] MEDS ORDERED: DRON2.5 PO (17:33)
[2022-02-18] MEDS ORDERED: MIDO5 PO (17:33)
[2022-02-18] MEDS ORDERED: ROXICODONE5 MG PO (17:34)
[2022-02-18] MEDS ORDERED: METO5A PO (17:36)
[2022-02-18] MEDS ORDERED: MIRALAX17 GM PO (17:36)
--- NOTE | 2022-02-18 18:01 | NUR ---
DISCHARGE/SUMMARY NOTE: DR. ORDAZ CAME BACK TO THE PATIENTS ROOM WITH THE AT BEDSIDE. EXPLAINED MORE TO HOW SHE DOESN'T FEEL COMFORTABLE WITH THE PATIENT GOING HOME AND GIVING HERSELF BOLUS FEEDS WHEN SHE HAS BARELY STARTED THE KANGAROO PUMP FEEDINGS. PATIENT KEPT VERBALIZING "I JUST WANT TO GO HOME. I CAN MANAGE THIS MYSELF AT HOME AND I WILL EVEN EAT MORE WHEN I GO HOME". DR. ORDAZ THEN RECOMMENDED HER TO NOT DO THE PEG TUBE FEEDINGS UNTIL THE KANGAROO PUMP WAS DELIVERED AT HER HOME, BUT UNTIL THEN SHE CAN AT LEAST TOLERATE EATING BY MOUTH UNTIL THEN. DR. ORDAZ SAID SHE WILL ALSO WANT HER TO HAVE HOME HEALTH SCHEDULED FOR WHEN SHE GETS HER KANGAROO PUMP DELIVERED. PATIENT AND AGREED TO THIS PLAN. PATIENT AND WERE EDUCATED ON DISCHARGE INSTRUCTIONS. BOTH VERBALIZED UNDERSTANDING OF INSTRUCTIONS. IV WAS TAKEN OUT AND WNL. PAIN IS MANAGED WITH PO PAIN MEDICATIONS. HARD PERSCRIPTION WAS PLACED IN INSTRUCTIONS FOLDER AND THE OTHER PERSCRIPTIONS WERE FAXED TO [facility] (HER PREFERRED PHARMACY) WHICH BOTH THE PATIENT AND THE ARE AWARE. PEG TUBE WAS DISCONNECTED FROM OUT KANGAROO PUMP AND FLUSHED 30ML OF SALINE AND CLAMPED IT OFF. THE SURROUNDING SITE ON THE PEG TUBE IS STILL C/D/I. ABD TONES ARE ACTIVE. PATIENT DENIES NAUSEA AND VOMITING THROUGHOUT SHIFT. TOLERATING SMALL AMOUNTS OF PO INTAKE AND IS VOIDING. PATIENT IS DRESSED AND HAS ITEMS IN THE ROOM GATHERED. PATIENT IS BEING WHEELCHAIRED OUT TO HUSBANDS CAR TO BE TAKEN HOME. A NOTE WILL BE LEFT FOR CASE MANAGEMENT TO FOLLOW UP WITH HOME HEALTH ARRANGEMENTS.
== END 2022-02-18 18:08 | disposition home health service (06) | DRG 640 ==
LOC: ER 02:34 → SURS 02:35 → ERHOLD 02:35 → SURS 11:35
PROVIDERS: Emergency Medicine; Family Medicine; Internal Medicine; Surgery; ADMIT Family Medicine
PROC: 3E0G76Z Introduction of Nutritional Substance into Upper GI, Via Natural or Artificial Opening (ICD-10-PCS; 2022-02-10)
PROC: 30233N1 Transfusion of Nonautologous Red Blood Cells into Peripheral Vein, Percutaneous Approach (ICD-10-PCS; 2022-02-14)
PROC: 0DH63UZ Insertion of Feeding Device into Stomach, Percutaneous Approach (ICD-10-PCS; principal; 2022-02-15 12:30)
DX: E87.6 Hypokalemia (principal); E43 Unspecified severe protein-calorie malnutrition; D61.810 Antineoplastic chemotherapy induced pancytopenia; Z68.1 Body mass index [BMI] 19.9 or less, adult; C79.31 Secondary malignant neoplasm of brain; C34.90 Malignant neoplasm of unspecified part of unspecified bronchus or lung; R64 Cachexia; Z20.822 Contact with and (suspected) exposure to COVID-19; E83.42 Hypomagnesemia; E87.1 Hypo-osmolality and hyponatremia; I95.9 Hypotension, unspecified; T45.1X5A Adverse effect of antineoplastic and immunosuppressive drugs, initial encounter; E86.1 Hypovolemia; E86.0 Dehydration; Z92.21 Personal history of antineoplastic chemotherapy; Z92.3 Personal history of irradiation; Z87.891 Personal history of nicotine dependence; Z85.3 Personal history of malignant neoplasm of breast; Z85.038 Personal history of other malignant neoplasm of large intestine; Z90.49 Acquired absence of other specified parts of digestive tract; Z90.710 Acquired absence of both cervix and uterus; Z90.89 Acquired absence of other organs; Z79.51 Long term (current) use of inhaled steroids; Z79.899 Other long term (current) drug therapy; Z88.5 Allergy status to narcotic agent; Z88.6 Allergy status to analgesic agent; Z88.8 Allergy status to other drugs, medicaments and biological substances
CPT/HCPCS: 0241U; 36415; 36430; 71260; 80048; 80053; 80069; 83735; 84100; 84132; 84478; 85025; 85027; 86850; 86900; 86901; 86923; 93005; 93010; 94762; 96365; 96366; 96367; 96375; 96376; 97110; 97116; 97162; 97165; 97530; 99285-25; A9270; G0378; J0610; J0690; J1642; J2060; J2550; J2704; J3010; J3411; J3475; J3480; J7030; J7050; J7120; J7131; P9016; Q0167

== ENCOUNTER → 2022-06-14 | Outpatient (CLI) | payer OTHER ==
[~2022-06-14] MED LIST changes: +DRON2.5 PO; +METO5A PO; +MIDO5 PO; +MIRALAX17 GM PO; +ROXICODONE5 MG PO
[2022-06-15 20:11] LABS: Adenovirus F 40/41 Not Detected (NOT DETECT); Astrovirus Not Detected (NOT DETECT); Campylobacter Sp Not Detected (NOT DETECT); Cryptosporidium Not Detected (NOT DETECT); Cyclospora Cayetanensis Not Detected (NOT DETECT); E. Coli O157 Not Detected (NOT DETECT); Entamoeba Histolytica Not Detected (NOT DETECT); Enteroaggregative E. coli-EAEC Not Detected (NOT DETECT); Enteropathogenic E. coli-EPEC Not Detected (NOT DETECT); Enterotoxigenic E. coli-ETEC Not Detected (NOT DETECT); Giardia Lamblia Not Detected (NOT DETECT); Norovirus GI/GII Not Detected (NOT DETECT); Plesiomonas Shigelloides Not Detected (NOT DETECT); Rotavirus A Not Detected (NOT DETECT); Salmonella Sp Not Detected (NOT DETECT); Sapovirus Not Detected (NOT DETECT); Shiga Toxin-prod E. coli-STEC Not Detected (NOT DETECT); Shigella/Enteroin E. coli-EIEC Not Detected (NOT DETECT); Vibrio Cholerae Not Detected (NOT DETECT); Vibrio Sp Not Detected (NOT DETECT); Yersinia Enterocolitica Not Detected (NOT DETECT)
== END ==
LOC: LAB SHORT 04:00 → LAB 04:00
PROVIDERS: Family Medicine
DX: R19.7 Diarrhea, unspecified (principal)
CPT/HCPCS: 87324; 87507

== ENCOUNTER 2022-10-13 12:17 | Emergency (ER) | payer OTHER ==
[~2022-10-13] VITALS: Ht 154.9 cm; Wt 29.5 kg
[2022-10-13 14:48] LABS: BASOPHILS ABSOLUTE AUTO 0.02 K/mm3 (0.00-0.23); BASOPHILS PERCENT AUTO 0 % (0-2); EOSINOPHILS PERCENT AUTO 0 % (0-6); Hematocrit 22.1 % (33.0-51.0); Hemoglobin 7.7 g/dL (11.5-16.0); IMMATURE GRAN ABSOLUTE AUTO 0.17 K/mm3 (0.00-0.10); IMMATURE GRAN PERCENT AUTO 1 % (0-1); LYMPHOCYTES ABSOLUTE AUTO 1.24 K/mm3 (0.84-5.20); LYMPHOCYTES PERCENT AUTO 10 % (21-46); MONOCYTES ABSOLUTE AUTO 1.17 K/mm3 (0.16-1.47); MONOCYTES PERCENT AUTO 9 % (4-13); Mean Corpuscular HGB 36.7 pg (26.0-34.0); Mean Corpuscular HGB Conc 34.8 g/dL (31.5-36.5); Mean Corpuscular Volume 105 fL (80-100); Mean Platelet Volume 10.6 fL (9.1-12.4); NEUTROPHILS PERCENT AUTO 80 % (41-73); Platelet Count 84 K/mm3 (150-400); RDW Coefficient Variation 26.1 % (11.7-14.2); RDW Standard Deviation 95.6 fL (35.1-46.3)
[2022-10-13 15:16] LABS: Albumin, Blood 1.8 g/dL (3.4-5.0); Albumin/Globulin Ratio 0.7 (0.8-1.8); Bilirubin, Total 0.5 mg/dL (0.1-1.0); Bun/Creatinine Ratio 20.3 (12.0-20.0); Calcium, Blood 7.2 mg/dL (8.5-10.1); Creatinine, Blood 0.4 mg/dL (0.40-1.00); Globulin, Blood 2.5 g/dL (2.2-4.0); Potassium, Blood 3.4 mmol/L (3.5-5.5); Total Protein, Blood 4.3 g/dL (6.4-8.2)
[2022-10-13 16:14] LABS: Source, Urine Straight Cath
[2022-10-13 16:18] LABS: Appearance, Urine Hazy (Clear); Bilirubin, Urine Neg (Neg); Blood, Urine 1+ (Neg); Color, Urine Yellow (P-Yellow); Glucose Qualitative, Urine Neg (Neg); Ketones, Urine Neg (Neg); Leukocyte Esterase, Urine Neg (Neg); Nitrite, Urine Neg (Neg); Protein, Urine Neg (Neg); Specific Gravity, Urine 1.005 (1.003-1.022); Urobilinogen, Urine 1+ (Normal)
[2022-10-13 16:32] LABS: Bacteria Many /hpf; Squamous Epithelial Cells Few /hpf (Few)
[2022-10-13] MEDS ORDERED: SULTRIDS PO (17:15)
== END 2022-10-13 17:55 | disposition home or self-care (01) ==
LOC: ER 12:17
PROVIDERS: Student in an Organized Health Care Education/Training Program
DX: R53.1 Weakness (principal); R29.6 Repeated falls; C34.90 Malignant neoplasm of unspecified part of unspecified bronchus or lung; C79.31 Secondary malignant neoplasm of brain; F17.200 Nicotine dependence, unspecified, uncomplicated
CPT/HCPCS: 36415; 72040; 72070; 72100; 80053; 81001; 85025; 93005; 93010; 96374; 99285-25; A9270; J1885; J7030; J7120

== ENCOUNTER 2022-11-02 11:23 | Inpatient (IN) | payer OTHER ==
[~2022-11-02] VITALS: Ht 165.1 cm; Wt 27.4 kg
[~2022-11-02 11:23] MED LIST changes: +SULTRIDS PO
[2022-11-02 13:11] LABS: BASOPHILS ABSOLUTE AUTO 0.01 K/mm3 (0.00-0.23); BASOPHILS PERCENT AUTO 0 % (0-2); EOSINOPHILS PERCENT AUTO 0 % (0-6); Hematocrit 28.4 % (33.0-51.0); IMMATURE GRAN ABSOLUTE AUTO 0.04 K/mm3 (0.00-0.10); IMMATURE GRAN PERCENT AUTO 1 % (0-1); LYMPHOCYTES ABSOLUTE AUTO 0.81 K/mm3 (0.84-5.20); LYMPHOCYTES PERCENT AUTO 11 % (21-46); MONOCYTES PERCENT AUTO 5 % (4-13); Mean Corpuscular HGB 37.9 pg (26.0-34.0); Mean Corpuscular HGB Conc 35.2 g/dL (31.5-36.5); Mean Corpuscular Volume 108 fL (80-100); Mean Platelet Volume 10.4 fL (9.1-12.4); NEUTROPHILS ABSOLUTE AUTO 6.29 K/mm3 (1.96-9.15); NEUTROPHILS PERCENT AUTO 83 % (41-73); Platelet Count 111 K/mm3 (150-400); RDW Coefficient Variation 21.9 % (11.7-14.2); RDW Standard Deviation 84.4 fL (35.1-46.3); Red Blood Cell Count 2.64 M/mm3 (3.80-5.20); White Blood Cell Count 7.55 K/mm3 (4.00-11.30)
[2022-11-02 13:15] LABS: Albumin, Blood 2.1 g/dL (3.4-5.0); Albumin/Globulin Ratio 0.7 (0.8-1.8); Bilirubin, Total 0.5 mg/dL (0.1-1.0); Bun/Creatinine Ratio 14.3 (12.0-20.0); Creatinine, Blood 0.42 mg/dL (0.40-1.00); Globulin, Blood 3.2 g/dL (2.2-4.0); Magnesium, Blood 1.4 mg/dL (1.6-2.4); Phosphorus, Blood 3.6 mg/dL (2.5-4.9); Potassium, Blood 2.5 mmol/L (3.5-5.5); Total Protein, Blood 5.3 g/dL (6.4-8.2); Uric Acid, Blood 5.4 mg/dL (2.6-6.0)
[2022-11-02] MEDS ORDERED: OXYC5 PO (18:15)
[2022-11-02] MEDS ORDERED: POTCHL20ER PO (18:22)
--- NOTE | 2022-11-02 19:48 | NUR ---
END OF SHIFT SUMMARY: PATIENT ARRIVED TO UNIT AROUND 18:10. PATIENT ALERT AND ORIENTED. PATIENT HARD OF HEARING. PATIENT'S SISTER JAMISON AT BEDSIDE. PATIENT ON 10L VIA OXYMIZER. PATIENT DENIES SHORTNESS OF BREATH, BUT DOES REQUEST THAT HER HEAD BE ELEVATED AT ALL TIMES. SPO2 94% AT TIME OF ADMISSION. NOTIFIED RT OF ADMISSION. TELE PLACED ON THE PATIENT. NSR AT 78 BPM PER SPEAR FISHER. PATIENT REPORTS GENERALIZED PAIN AT A "20". PATIENT REPORTED THAT SHE CANNOT TOLERATE PO POTASSIUM. PATIENT HAS A PEG TUBE IN PLACE. PATIENT REPORTS THAT SHE DOES DAILY TUBE FEEDINGS AND ATTEMPTS PO INTAKE. DISCUSSED WITH DR. CHIN. NEW ORDERS RECEIVED AND ENTERED. PROVIDED PATIENT WITH HEAT PAD, RECLINER, EGG CRATE AND MEDICATED PER PRNS. PATIENT REPORTED SOME IMPROVEMENT.
--- NOTE | 2022-11-03 05:05 | NUR ---
PT AXOX4, UP IN RECLINER WITH EGG MATTRESS AND KPAD UNDER PER PT REQUEST. MEDICATED WITH OXY Q 6 HRS, PT PAINFUL IN SPINE, MEICATION HELPFUL AND PT ABLE TO SLEEP. FLUIDS RUNNING, PT WITH VERY MINIMAL PO INTAKE. PT SISTER AT BEDSIDE AND HELPFUL. TELE WITH NO EVENTS.
--- NOTE | 2022-11-03 11:36 | NUR ---
Pt resting in bed upon arrival. Pt is known to this rfp writer from previous hospital stay. Family at bedside. Offered therapeutic listening as Pt reports still having adequate support with family and is still enjoying her grandchildren. Inquired with Pt how treatment is going and feelings going forward. Pt states "I'm tired of this crap". Continued therapeutic listening. Discussed hospice as an option. Pt reports being familiar with hospice as she has had family members on hospice in the past. She reports not ready to consider hospice. Gentle discussion regarding planning for the future and the potential need for more assistance as cancer progresses. Offered suggestions such as considering applying for Medicaid. Pt requests this RN to call Dr Nevarez office to notify them she is in the hospital. Called and spoke with staff at Dr Nevarez office. Relayed Pt request to notify Dr Nevarez. Palliative Care will remain available
[2022-11-03 18:08] LABS: Bun/Creatinine Ratio 9.9 (12.0-20.0); Calcium, Blood 7.7 mg/dL (8.5-10.1); Creatinine, Blood 0.4 mg/dL (0.40-1.00); Potassium, Blood 5.7 mmol/L (3.5-5.5)
--- NOTE | 2022-11-03 19:24 | NUR ---
SHIFT SUMMARY: C/O GENERALIZED PAIN; MEDICATED PER EMAR WITH ADEQUATE RELIEF. CODE STATUS CHANGED TO DNR PER PT WISHES. NO EVENTS ON TELEMETRY, SR 80'S. LAB REPORTED ELEVATED POTASSIUM AT 1800 FROM LABS DRAWN AT 0430 THIS MORNING (EQUIPMENT WAS DOWN). UNABLE TO GIVE CONTINUOUS TF THROUGH PEG INTRALUMINAL RESISTANCE WAS SO GREAT THAT TF TUBING KEPT POPPING OUT. GAVE TF GRAVITY BOLUS AND PT TOLERATED WELL. STILL ON O2 @ 13 L/MIN HF NC, WHICH PT REMOVES PERIODICALLY. GETTING UP TO BR WITH ASSISTANCE. HAS GOOD FAMILY SUPPORT.
[2022-11-04 05:27] LABS: Calcium, Blood 7.6 mg/dL (8.5-10.1); Creatinine, Blood 0.43 mg/dL (0.40-1.00); Magnesium, Blood 1.7 mg/dL (1.6-2.4); Potassium, Blood 4.2 mmol/L (3.5-5.5)
--- NOTE | 2022-11-04 05:33 | NUR ---
PT SITTING IN CHAIR DURING BEDSIDE ROUNDS, PT AMBUALTED TO BR AT BEGINNING OF SHIFT- PT A&O X 4- PT VOMITTED TWICE DURING THE SHIFT- MEDICATED WITH PHENERGAN-IV INFUSING TO MEDIPORT WITHOUT PROBLEMS
--- NOTE | 2022-11-04 14:54 | NUR ---
Pt resting in bed with her eyes cloded. Oxygen NC pulled down out of her nose. Pt will briefly wake and respond with 3-4 words then quickly drifts back to sleep. Difficult to keep Pt awake to have conversation. Pt appears more lethargic today. Spoke with Pt's Primary RN Ping and discussed case. Ping confirms Pt is more lethargic today and family has attempted to call Pt. Family expressing concerns that she is not anwering her phone. Discussed consideration of calling hospitalist of potential change in condition. Ping will call Dr Asif. Palliative Care will remain available
--- NOTE | 2022-11-04 18:55 | NUR ---
SHIFT SUMMARY: PATIENT SLEPT ALMOST ENTIRE SHIFT. NON COMPLIANT WITH USING O2, TAKES NC OUT OF NOSE ALMOST IMMEDIATELY AFTER NURSING REPLACES IT. O2 TITRATED DOWN TO 6 L/MIN, HAVING VERY WEAK COUGH EFFORT, FLUTTER VALVE ORDERED. GAVE ONE BOLUS TUBE FEED THIS MORNING, BUT RESIDUAL WAS TOO HIGH AT AFTERNOON AND EVENING FEEDINGS SO TF HELD. C/O GENERALIZED PAIN, WORSE WITH COUGHING AND MOVEMENT; MEDICATED PER EMAR. NO EVENTS ON TELEMETRY, SR 80-90'S. CONCERN FOR CO2 RETENTION THIS AFTERNOON PROMPTED ORDER FOR ABG, WHICH SHE REFUSED. DID NOT EAT ANY OF HER MEALS. DID NOT WANT TO SPEAK TO ANY OF HER FAMILY TODAY, BUT SHE GAVE VERBAL PERMISSION FOR THIS AUTHOR TO GIVE TELEPHONE UPDATE TO HER SISTER JAMISON.
--- NOTE | 2022-11-05 05:41 | NUR ---
SHIFT SUMMARY PT HAS SLEPT IN RECLINER T/O THE SHIFT, DENIES NEEDS WHEN ASKED. EGG CRATE IN PLACE, PT REPOSITONS HERSELF INDEPENDENTLY. PT AMBULATES TO THE BATHROOM 1 PA, SOME INCONTIENCE, ATTENDS APPEARED A LITTLE WET BUT PT REFUSED A NEW PAIR WHEN OFFERED, ASKED PT TWICE IF SHE WANTED A CLEAN JOE AND BOTH TIMES SHE ADAMENTLY REFUSED. 6L O2 VIA NC. PT IS NONCOMPLIANT WITH WEARING. I PLACED NC IN NOSE AND PT REMOVES. IT IS NOTED BY DAYSHIFT RN THAT PT WAS DOING THE SAME THING DURING THE DAY WITH HER OXYGEN. GROUP SALES COORDINATOR MADE AWARE OF PT NONCONCOMPLIANCE WITH O2. RESPIRATORY CARE IS AWARE WELL. PT BLOOD PRESSURES ARE SOFT BUT MAP ABOVE 65. PT IRRITABLE, AND WITHDRAWN, AND WANTS TO BE LEFT ALONE TO SLEEP. NO ACUTE CHANGES OVERNIGHT, BED IN LOWEST POSITION, CALL LIGHT WITHIN REACH.
[2022-11-05 06:24] LABS: Bun/Creatinine Ratio 17.9 (12.0-20.0); Calcium, Blood 7.2 mg/dL (8.5-10.1); Creatinine, Blood 0.39 mg/dL (0.40-1.00); Potassium, Blood 3.3 mmol/L (3.5-5.5)
--- NOTE | 2022-11-05 17:19 | NUR ---
SHIFT SUMMARY PT RESTING QUIETLY AT START OF SHIFT. PER REPORT, PT VERY AGITATED AND IRRITABLE AT FAMILY FOR WAKING HER. PT WOKE FOR CARE NEEDED, BUT VERY GRUMPY AND RUDE. IVF'S INFUSING. PER REPORT, PT ON 6L O2 VIA NC, BUT HAS BEEN ON RA MOST OF THE DAY SHE REFUSES TO WEAR O2. BIOX AT 88% ON RA. AM TUBE FEEDING DONE, THOUGH PT VERY IRRITABLE ABOUT IT; RESIDUAL AT 1cc. AT 2ND TUBE FEEDING FOR LUNCH, RESIDUAL 50cc'S PRIOR TO FEEDING. PT VERY UNCO-OP IN ALLOWING TUBE FEEDING OR RESIDUAL CHKS. PT BECOMING ANGRY ABOUT FEEDINGS AND HAS NOW REFUSED TO ALLOW ANY MORE. DR MARINO IN TO SEE PT AND DISCUSS PLAN OF CARE. PT WANTING TO GO HOME TODAY. DR MARINO WANTING PT TO STAY AT LEAST ANOTHER DAY AND RE-EVALUTE AGAIN TOMORROW. PT VERY UPSET AND CURSING, BUT THEN AGREED TO STAY. PT THEN STATED THAT SHE WAS GOING HOME TOMORROW REGARDLESS. ATTEMPTED TO NOTIFY PALLIATIVE CARE; UPDATE GIVEN ON PT STATUS. PALLIATIVE CARE TO COME AND TALK WITH PT AGAIN SOON. MULTIPLE FAMILY IN AND OUT OF TODAY. PT UP TO BTHRM THIS AFTERNOON, INCONTINENT OF BOWELS WITH VERY LOOSE STOOL. ATTEMPT TO CLEAN PT UP, BUT PT BECAME ANGRY AND WANTED TO STAY SOILED. GOWN CHANGED, BUT PT REFUSING TO ALLOW BEDDING TO BE CHANGED. TOWEL PLACED OVER STOOL, BUT PT REFUSING TO ALLOW PROPER CARE. DIFFERENT FAMILY AT AT THIS TIME. PALLIATIVE CARE IN . CALL LT IN REACH.
--- NOTE | 2022-11-05 17:59 | NUR ---
CASE CONF WITH RN, PT CONTINUES TO REFUSE MEDICATIONS, OXYGEN, FOOD AND WONT ALLOW THE NURSING TEAM TO CHANBGE HER ATTENDS OR CHANGE HER BED. WILL DISCUSS GOALS OF CARE WITH PT. PT SITTING SUPINE IN ROOM WITH FAMILY IN ROOM. SHE IS ALERT AND INTERACTING WITH FAMILY. SHE IS OPEN TO A VISIT WITH PALLIATIVE CARE. ADVISED THAT THE MEDICAL TEAM WANTS TO HONOR HER WISHES AND BELIEFS. ASKED PT WHAT HER WISHES ARE WITH CONTUNING TO REFUSE TREATMENTS. PT REPORTS SHE IS JUST DONE BEING IN THE HOSPITAL, SHES UNCOMFORTABLE AND WANTS TO GO HOME. SHE DOESNT UNDERSTAND WHY THE DOCTOR WONT DC HER. PROVIDED EDUATION THAT SHE IS NOT MEDICALLY STABLE YET, STILL REQUIRING IV MEDICATION AND OXYGEN THAT SHE DOESNT USUALLY USE AT HOME. WHEN ASKED THAT IF SHES'S "DONE" WITH TREATMENTS, ARE HER WISHES TO STOP ALL TREATMENTS AND GO HOME ON COMFORT CARE. PT IS NOT INTERESTED IN COMFORT CARE BECUASE SHE PLANS ON CONTINUNG HER CANCER TREATMENT AFTER SHE LEAVES THE HOSPITAL. SHE HAS AN APPT IN THE NEXT WEEK OR TWO AND PLANS ON ATTENDING THIS APPT FOR CONTINUED TREATMENTS. PT AGREES TO STAY ANOTHER 24 HOURS, BUT IS ADAMANT THAT SHE WANTS TO GO HOME TOMORROW. PT ASKS TO HAVE HER LOVENOX INJECTIONS BE STOPPED AND FAMILY IS ASKING IF PT CAN BE SENT HOME WITH OXYGEN AND ORAL ANTIBIOCS. ADVISED I WILL HAVE TO FOLLOW UP WITH HER DOCTOR. ENCOURAGED THE PT TO BE OPEN AND COOPERTATE WITH HER CARE SO WE CAN GET HER STABLE ENOUGH TO BE DCD HOME SAFELY TO PREVENT HER FAILING OUTPT CARE AND ENDING BACK ADMITTED AGAIN. PT AGREES TO BE COOPERATIVE AND I ADVISED HER I WILL CHECK ON HER TOMORROW. UPDATED RN TERRI PALLIATIVE CARE WILL CONTINUE TO FOLLOW.
--- NOTE | 2022-11-05 22:29 | NUR ---
AMA 2218 PT IS REQUESTING TO LEAVE AMA, PT IS FRUSTRATED WITH CARE, REFUSING VITALS, TAKES OXYGEN OFF FREQUENTLY. PT SPOKE WITH ATTENDING DURING THE DAY TODAY AND WAS REQUESTING TO LEAVE AMA AT THAT TIME, BUT LATER CHANGED HER MIND. NOW THIS EVENING SHE IS REQUESTING TO LEAVE AMA AGAIN. FORM GIVEN TO PT AND HAS BEEN SIGNED. PT HAS CALLED HER DAUGHTER AND STATES THAT SHE IS ON HER WAY TO PICK HER UP.
--- NOTE | 2022-11-05 22:46 | NUR ---
AMA-UPDATE PT HAS LEFT AMA, FLUIDS HAVE BEEN DISCONNECTED AND MEDIPORT DEACCESSED. FORM HAS BEEN SIGNED AND IS IN THE FRONT OF PT CHART. BELONGINGS IN PLACE WITH PT.
== END 2022-11-05 22:49 | disposition left against medical advice (07) | DRG 193 ==
LOC: ER 11:23 → MEDS 11:24
PROVIDERS: Emergency Medicine; ADMIT Internal Medicine
PROC: 5A0935A Assistance with Respiratory Ventilation, Less than 24 Consecutive Hours, High Flow/Velocity Cannula (ICD-10-PCS; principal; 2022-11-03)
DX: J18.9 Pneumonia, unspecified organism (principal); E43 Unspecified severe protein-calorie malnutrition; J96.01 Acute respiratory failure with hypoxia; C34.90 Malignant neoplasm of unspecified part of unspecified bronchus or lung; R64 Cachexia; C79.31 Secondary malignant neoplasm of brain; E87.1 Hypo-osmolality and hyponatremia; Z68.1 Body mass index [BMI] 19.9 or less, adult; Z51.5 Encounter for palliative care; E87.6 Hypokalemia; E83.42 Hypomagnesemia; Z66 Do not resuscitate; E86.9 Volume depletion, unspecified; D69.6 Thrombocytopenia, unspecified; D63.8 Anemia in other chronic diseases classified elsewhere; R62.7 Adult failure to thrive; Z92.3 Personal history of irradiation; Z85.3 Personal history of malignant neoplasm of breast; Z98.890 Other specified postprocedural states; Z90.49 Acquired absence of other specified parts of digestive tract; Z90.710 Acquired absence of both cervix and uterus; Z93.1 Gastrostomy status; Z87.891 Personal history of nicotine dependence; Z88.8 Allergy status to other drugs, medicaments and biological substances; Z88.5 Allergy status to narcotic agent; Z79.899 Other long term (current) drug therapy
CPT/HCPCS: 36415; 71046; 71260; 80048; 80053; 83735; 83880; 84100; 84484; 84550; 85025; 93005; 93010; 94640; 94664; 94760; 96361; 96365-59; 96366-59; 96372; 96375-59; 99285-25; A9270; G0378; J1642; J1650; J2543; J3475; J3480; J7030; J7040; J7050; Q0167; Q9967

== ENCOUNTER 2022-11-12 21:12 | Inpatient (IN) | payer OTHER ==
[~2022-11-12] VITALS: Ht 165.1 cm; Wt 32.0 kg
[~2022-11-12 21:12] MED LIST changes: +OXYC5 PO; +POTCHL20ER PO
[2022-11-12 21:28] LABS: PCO2 Arterial 50.8 mmHg (35-45); PO2 Arterial 45.8 mmHg (80-100); pH Blood Arterial 7.44 (7.35-7.45)
[2022-11-12 21:44] LABS: BASOPHILS ABSOLUTE AUTO 0.03 K/mm3 (0.00-0.23); BASOPHILS PERCENT AUTO 0 % (0-2); EOSINOPHILS ABSOLUTE AUTO 0.02 K/mm3 (0.00-0.68); EOSINOPHILS PERCENT AUTO 0 % (0-6); Hematocrit 29.3 % (33.0-51.0); Hemoglobin 10.1 g/dL (11.5-16.0); IMMATURE GRAN PERCENT AUTO 1 % (0-1); LYMPHOCYTES ABSOLUTE AUTO 1.71 K/mm3 (0.84-5.20); LYMPHOCYTES PERCENT AUTO 11 % (21-46); MONOCYTES ABSOLUTE AUTO 1.48 K/mm3 (0.16-1.47); MONOCYTES PERCENT AUTO 10 % (4-13); Mean Corpuscular HGB 37.4 pg (26.0-34.0); Mean Corpuscular HGB Conc 34.5 g/dL (31.5-36.5); Mean Corpuscular Volume 109 fL (80-100); Mean Platelet Volume 10.4 fL (9.1-12.4); NEUTROPHILS ABSOLUTE AUTO 12.21 K/mm3 (1.96-9.15); NEUTROPHILS PERCENT AUTO 79 % (41-73); Platelet Count 152 K/mm3 (150-400); RDW Coefficient Variation 20.1 % (11.7-14.2); RDW Standard Deviation 80.8 fL (35.1-46.3); White Blood Cell Count 15.55 K/mm3 (4.00-11.30)
[2022-11-12] MEDS ORDERED: AMOCLA875 PO (21:46)
[2022-11-12 22:01] LABS: Albumin/Globulin Ratio 0.6 (0.8-1.8); Bilirubin, Total 0.3 mg/dL (0.1-1.0); Calcium, Blood 7.9 mg/dL (8.5-10.1); Creatinine, Blood 0.37 mg/dL (0.40-1.00); Globulin, Blood 3.2 g/dL (2.2-4.0); Potassium, Blood 3.1 mmol/L (3.5-5.5); Total Protein, Blood 5.2 g/dL (6.4-8.2)
[2022-11-12 22:38] LABS: Influenza A, PCR NEGATIVE (NEGATIVE); Influenza B, PCR NEGATIVE (NEGATIVE); Resp Syncytial Virus, PCR NEGATIVE (NEGATIVE); SARS-Cov-2 (COVID-19) PCR, MMC NEGATIVE (NEGATIVE)
[2022-11-13 03:12] LABS: BASOPHILS ABSOLUTE AUTO 0.02 K/mm3 (0.00-0.23); BASOPHILS PERCENT AUTO 0 % (0-2); EOSINOPHILS PERCENT AUTO 0 % (0-6); Hematocrit 25.3 % (33.0-51.0); IMMATURE GRAN ABSOLUTE AUTO 0.06 K/mm3 (0.00-0.10); IMMATURE GRAN PERCENT AUTO 0 % (0-1); LYMPHOCYTES ABSOLUTE AUTO 1.03 K/mm3 (0.84-5.20); LYMPHOCYTES PERCENT AUTO 7 % (21-46); MONOCYTES ABSOLUTE AUTO 1.02 K/mm3 (0.16-1.47); MONOCYTES PERCENT AUTO 7 % (4-13); Mean Corpuscular HGB 39.1 pg (26.0-34.0); Mean Corpuscular HGB Conc 35.6 g/dL (31.5-36.5); Mean Corpuscular Volume 110 fL (80-100); Mean Platelet Volume 10.5 fL (9.1-12.4); NEUTROPHILS ABSOLUTE AUTO 11.71 K/mm3 (1.96-9.15); NEUTROPHILS PERCENT AUTO 85 % (41-73); Platelet Count 124 K/mm3 (150-400); RDW Coefficient Variation 20.1 % (11.7-14.2); RDW Standard Deviation 81.4 fL (35.1-46.3); White Blood Cell Count 13.84 K/mm3 (4.00-11.30)
[2022-11-13 03:50] LABS: Albumin, Blood 1.7 g/dL (3.4-5.0); Albumin/Globulin Ratio 0.6 (0.8-1.8); Bilirubin, Total 0.2 mg/dL (0.1-1.0); Bun/Creatinine Ratio 15.7 (12.0-20.0); Calcium, Blood 6.9 mg/dL (8.5-10.1); Creatinine, Blood 0.32 mg/dL (0.40-1.00); Globulin, Blood 2.7 g/dL (2.2-4.0); Potassium, Blood 2.9 mmol/L (3.5-5.5); Total Protein, Blood 4.4 g/dL (6.4-8.2)
--- NOTE | 2022-11-13 04:40 | NUR ---
PT HAD EPISODE OF DESATURATION TO 72% ON AIRVO - NONREBREATHER MASK PLACED OVER AIRVO AND PT PUT ON 25L BY NRB BY RT WHO THEN SUGGESTED ROLLING PT TO RIGHT SIDE DUE TO PLEURAL EFFUSION ON THE LEFT. PT REPOSITIONED TO RIGHT SIDE AND SATURATIONS ARE IMPROVING. PT REPORTS "I JUST WANT TO SLEEP".
--- NOTE | 2022-11-13 06:25 | NUR ---
SWITCHBOARD OPERATOR HELPER SUMMARY ASSUMED CARE OF THE PT AT 0112 UPON ADMIT FROM THE ER. PT IS ALERT AND ORIENTED, PLEASANT AND COOPERATIVE WITH INSTRUCTIONS. SHE IS VERY CACHECTIC APPEARING DUE TO CANCER HX. PT HAS PEG TUBE TO THE LOWER ABDOMEN THAT SHE STATES SHE SOMETIMES USES FOR FEEDINGS. PT BP IMPROVED AFTER FLUID BOLUS IN ED. SHE WAS ADMITTED TO THE FLOOR ON 15L BY NRB BUT WAS SHORTLY SWAPPED TO AIRVO PER RT TITRATION. SHE THEN HAD EPISODES OF DESATURATION INTO THE 70S AND 80S, REQUIRING THE NRB ON TOP OF AIRVO. NRB INCREASED TO 25L WITH AIRVO SETTINGS AT 60L 93%. THIS RN HAS BEEN TITRATING NRB DOWN BASED ON PT SATURATION. SATURATIONS IMPROVED WITH ROLLING PATIENT ONTO HER RIGHT SIDE. MEDIPORT INFUSING WITH POTASSIUM CHLORIDE. PT ABLE TO ROLL AND REPOSITION IN BED WITH MINIMAL ASSISTANCE. STATES SHE NORMALLY GETS UP WITH A WALKER. TELE HAS BEEN SINUS WITH NO COMPLAINTS OF CHEST PAIN/PRESSURE.
--- NOTE | 2022-11-13 15:04 | NUR ---
Spoke with Primary RN Yovanny and discussed case. Pt may benefit from continued conversation regarding hospice servies. Physician had a conversation with Pt regarding hospice and Pt is agreeable. Pt is resting in bed with her eyes closed. Pt wakes to gentle verbal stimuli. Pt is A&OX4. Engaged in therapeutic conversation regarding hospice. Educated on hospice philosophy with V/U made by Pt. Pt confirms wishes to enroll in hospice services. Discussed hospice agencies to choose from with Pt requesting hospice agency that is available the soonest. Requested if this RN can call family of her decision with Pt requesting her daughter Opal be contacted. Spoke with daughter Opal over the phone. Provided update and discussed Pt's wishes for hospice. Opal reports not understanding stating her aunt (Pt's sister) told her this morning that Pt said no to hospice. Continued supportive conversation and educated on disease process with Pt's wishes to remain at home vs being at the hospital and to focus on comfort and quality of life. Maria Teresa Joseph reports plan to come speak with Pt further. Palliative Care will remain available.
--- NOTE | 2022-11-13 17:38 | NUR ---
SHIFT SUMMARY: PT LETHARGIC, SLEEPING OFTEN BUT AROUSES EASILY TO STAFF IN ROOM, [place], ORIENTED x4 AND ABLE TO MAKE NEEDS KNOWN/ANSWER QUESTIONS. RESPIRATIONS HAVE BEEN EVEN AND UNLABORED, PT TRANSITIONED TO NC AT 4 L/MIN T/OUT DAY, O2 SATS >93%, AIRVO REMAINS AT BEDSIDE AT THIS TIME. PT W/ONE EPISODE THIS SHIFT OF DESATURATION THAT IMPROVED W/AIRVO PLACEMENT. SR ON MONITOR, PT DENIES CP/SOB. PT APPEARS CACHECTIC, DENIES APPETITE UNTIL THIS EVENING, DINNER TRAY HAS BEEN ORDERED. PT INCONTINENT OF URINE/BOWEL, ATTENDS IN PLACE AND CHANGED NEEDED. K+ REPLACEMENT COMPLETED, NS CURRENTLY INFUSING PER ORDERS. AT THIS TIME, PT HAS VERBALLY AGREED TO HOSPICE PLACEMENT AND REQUESTS TO GO HOME SOON POSSIBLE. PER JAVON, RN IN PALLIATIVE CARE, PT'S DAUGHTER PLANS TO COME VISIT AND DISCUSS OPTIONS W/PT, BUT HAS NOT ARRIVED YET. PT IS CURRENTLY RESTING IN BED W/EYES CLOSED, CALL LIGHT W/IN REACH. WILL CONTINUE TO MONITOR AND TREAT ACCORDINGLY UNTIL CHANGE OF SHIFT.
[2022-11-14 04:16] LABS: BASOPHILS ABSOLUTE AUTO 0.02 K/mm3 (0.00-0.23); BASOPHILS PERCENT AUTO 0 % (0-2); EOSINOPHILS ABSOLUTE AUTO 0.01 K/mm3 (0.00-0.68); EOSINOPHILS PERCENT AUTO 0 % (0-6); Hematocrit 24.6 % (33.0-51.0); Hemoglobin 8.3 g/dL (11.5-16.0); IMMATURE GRAN ABSOLUTE AUTO 0.08 K/mm3 (0.00-0.10); IMMATURE GRAN PERCENT AUTO 1 % (0-1); LYMPHOCYTES ABSOLUTE AUTO 1.36 K/mm3 (0.84-5.20); LYMPHOCYTES PERCENT AUTO 10 % (21-46); MONOCYTES ABSOLUTE AUTO 0.91 K/mm3 (0.16-1.47); MONOCYTES PERCENT AUTO 7 % (4-13); Mean Corpuscular HGB 38.1 pg (26.0-34.0); Mean Corpuscular HGB Conc 33.7 g/dL (31.5-36.5); Mean Corpuscular Volume 113 fL (80-100); Mean Platelet Volume 10.7 fL (9.1-12.4); NEUTROPHILS ABSOLUTE AUTO 11.61 K/mm3 (1.96-9.15); NEUTROPHILS PERCENT AUTO 83 % (41-73); Platelet Count 138 K/mm3 (150-400); RDW Coefficient Variation 20.9 % (11.7-14.2); RDW Standard Deviation 87.8 fL (35.1-46.3); Red Blood Cell Count 2.18 M/mm3 (3.80-5.20); White Blood Cell Count 13.99 K/mm3 (4.00-11.30)
[2022-11-14 04:31] LABS: Bun/Creatinine Ratio 16.9 (12.0-20.0); Calcium, Blood 7.7 mg/dL (8.5-10.1); Creatinine, Blood 0.3 mg/dL (0.40-1.00)
--- NOTE | 2022-11-14 05:14 | NUR ---
SHIFT SUMMARY PT IS A/Ox4 AND IS COOPERATIVE WITH CARE PROVIDED BY MEMBERS OF STAFF. PT HAS BEEN LETHARGIC/WEAK T/O MOST OF THE SHIFT. LIKELY DUE TO HER PNA AND CHEMO. TREATMENTS. MAITAINING SPO2 >90% ON 4-6L O2 VIA NC WITH SOB NOTED WITH MOVEMENTS OR ABULAION. AIRVO ALSO AT BEDSIDE IN CASE. HAS A NON-PRODUCTIVE/WEAK/ WET COUGH AND HAS ISSUES COUGHING UP SECREATIONS. PT IS VERY COCHECTIC. PAIN MANAGED VIA EMAR. PEGTUBE STILL IN PLACE, BUT PT STATES SHE ONLY USES IT WHEN "I CANT EAT NORMALLY". NO REPORTS OF CP OR PRESSURE T/O THE SHIFT, BP AND HR STABLE. CONTINUES TO BE INCONTINENT OF URINE/BMS. POSSIBLE DC THIS AM WITH [facility]. BLANCO ABREU AND WILL REPORT INFO TO UNCOMING DAYSHIFT RN
--- NOTE | 2022-11-14 09:45 | NUR ---
Brief supportive visit this AM. Pt resting in bed with her eyes closed. Pt wakes to gentle verbal stimuli. Reviewed plan of care and discussed D/C plan. Pt confirms her wishes of being D/C home as soonest as possible with hospice services. Pt confirms agency of choice is who ever is available the soonest. Spoke with Primary CLIVE Hairston Caremanager Franci and discussed case. Palliative Care will remain available
[2022-11-14] MEDS ORDERED: AZIT500 PO (13:11)
[2022-11-14] MEDS ORDERED: CEFP200 PO (13:13)
--- NOTE | 2022-11-14 14:30 | NUR ---
DISCHARGE: PT CONTINUES TO ENDORSE PREFERENCE TO DC HOME ON HOSPICE. PLAN ESTABLISHED W/ASSISTANCE OF PALLIATIVE CARE AND CARE MANAGEMENT. PT's UNCLE AT BEDSIDE AND UPDATED ON PLAN OF CARE. HOME O2 EVALUATION COMPLETED W/OXYGEN DELIVERED TO BEDSIDE. MEDIPORT ACCESS DC'd WNL W/HEPARIN FLUSH. ATTENDS CHECKED OFTEN AND CHANGED NEEDED, PT REPOSITIONED FREQUENTLY. DC PAPERWORK AND INSTRUCTIONS PROVIDED. TRANSPORT ARRIVES, PT DEPARTS VIA GURNEY W/OUT INCIDENT.
== END 2022-11-14 14:21 | disposition hospice, home (50) | DRG 193 ==
LOC: ER 21:12 → PCU 11-13 00:04
PROVIDERS: Emergency Medicine; Family Medicine; ADMIT Internal Medicine
PROC: 4A033R1 Measurement of Arterial Saturation, Peripheral, Percutaneous Approach (ICD-10-PCS; principal; 2022-11-13)
DX: J18.9 Pneumonia, unspecified organism (principal); E43 Unspecified severe protein-calorie malnutrition; J96.01 Acute respiratory failure with hypoxia; J96.02 Acute respiratory failure with hypercapnia; R64 Cachexia; C79.31 Secondary malignant neoplasm of brain; J90 Pleural effusion, not elsewhere classified; Z68.1 Body mass index [BMI] 19.9 or less, adult; C34.12 Malignant neoplasm of upper lobe, left bronchus or lung; Z51.5 Encounter for palliative care; Z66 Do not resuscitate; E87.6 Hypokalemia; I95.9 Hypotension, unspecified; Z20.822 Contact with and (suspected) exposure to COVID-19; F17.210 Nicotine dependence, cigarettes, uncomplicated; R13.10 Dysphagia, unspecified; D63.8 Anemia in other chronic diseases classified elsewhere; Z93.1 Gastrostomy status; Z79.899 Other long term (current) drug therapy; Z79.891 Long term (current) use of opiate analgesic; Z85.3 Personal history of malignant neoplasm of breast; Z92.21 Personal history of antineoplastic chemotherapy; Z88.5 Allergy status to narcotic agent; Z88.8 Allergy status to other drugs, medicaments and biological substances
CPT/HCPCS: 0241U; 36415; 36600; 71260; 80048; 80053; 82803; 83605; 83880; 84484; 85025; 87040; 93005; 93010; 94761; 94762; 96365-59; 96375-59; 99285-25; A9270; J0456; J0696; J1642; J1650; J3480; J7030; J7050; Q0167; Q9967